=== PATIENT | female | born 1960 | race Two or more races ===

== ENCOUNTER 2023-06-22 12:38 | Emergency (ER) | payer OTHER ==
[~2023-06-22] VITALS: Ht 160 cm; Wt 76.5 kg
[2023-06-22] MEDS ORDERED: PRED20TA2 PO (13:47)
[2023-06-22] MEDS ORDERED: PROM1SOL4 PO (13:47)
[2023-06-22 13:51] VITALS: BP 124/84; PULSE 100; RESP 18; TEMP 97.6; O2SAT 98
== END 2023-06-22 13:53 | disposition home or self-care (01) ==
LOC: ER 12:38
DX: J20.9 Acute bronchitis, unspecified (principal); F41.9 Anxiety disorder, unspecified; F32.9 Major depressive disorder, single episode, unspecified
CPT/HCPCS: 71046